=== PATIENT | female | born 1990 | race Hispanic/Latino ===

== ENCOUNTER 2016-07-08 07:22 | Day surgery (SDC) | payer MEDICAID ==
--- NOTE | 2016-07-08 08:07 | Short Stay Summary ---
Short Stay Documentation Date of service: 07/08/16 Narrative H&P: Patient is a 26 year old who is 4 weeks from an . Patient now presents for elective sterilization. She has a past medical history of lymphoma and drug abuse, anxiety and eating disorder. - History H&P: obtained from office Past Medical History: cancer Past Surgical History: Other (laparoscopy) Social history: , smoking - Allergies and Medications Current Medications: Allergies citalopram hydrobromide [From Celexa] Allergy (Verified 07/07/16 16:05) Anaphylaxis fluoxetine HCl [From Prozac] Allergy (Verified 07/07/16 16:05) Anaphylaxis latex Allergy (Verified 07/07/16 16:05) Itching lavender (Lavandula angustifolia) [lavender] Allergy (Verified 07/07/16 16:05) hives, itch red dye Allergy (Verified 07/07/16 16:05) "eats skin away" Red dye / red ink...experienced this after getting a tattoo Home Medications Medication Instructions Recorded Confirmed Last Taken Type NIFEdipine XL [Procardia Xl] 30 mg PO QDAY #30 tablet 06/16/16 07/07/16 Unknown Rx ALPRAZolam [Xanax TAB] 0.5 mg PO TID PRN 07/07/16 07/07/16 Unknown History Ferrous Sulfate [Feosol] 325 mg PO QDAY 07/07/16 07/07/16 Unknown History Quetiapine Fumarate [SEROquel] 800 mg PO BID 07/07/16 07/07/16 Unknown History Ranitidine HCl [Acid Control] 150 mg PO TID 07/07/16 07/07/16 Unknown History hydrOXYZINE PAMOATE [Vistaril] 50 mg PO PRN PRN 07/07/16 07/07/16 Unknown History - Physical exam General appearance: no acute distress Integumentary: no rash HEENT: Other (edentulous) Lungs: Clear to auscultation, Normal air movement Breasts: deferred Heart: Regular rate, Normal S1, Normal S2 Gastrointestinal: normal, normoactive bowel sounds Female Genitourinary: normal Rectal Exam: deferred Extremities: No edema Short Stay Discharge Plan Follow up with: RUBINA JENKINS MD [Primary Care Provider] - 7 Days
[2016-07-08] MEDS ORDERED: ANCEF/STERILE WATER 2 GM/20 ML 2 GM/20 ML SYRINGE IV NR (09:00)
== END 2016-07-08 07:23 | disposition home or self-care (01) ==
LOC: OR 07:22
PROVIDERS: ATTEND Obstetrics & Gynecology
DX: Z30.2 Encounter for sterilization (principal); F17.210 Nicotine dependence, cigarettes, uncomplicated; Z85.9 Personal history of malignant neoplasm, unspecified; Z98.890 Other specified postprocedural states; Z53.8 Procedure and treatment not carried out for other reasons

== ENCOUNTER 2017-01-14 08:47 | Outpatient (CLI) | payer MEDICAID ==
[2017-01-14] MEDS ORDERED: LACTATED RINGERS 500 ML IV ONE (08:56)
[2017-01-14] MEDS ORDERED: LACTATED RINGERS 1,000 ML IV SCH (09:00)
[2017-01-14 09:13] VITALS: BP 111/62
[2017-01-14] MEDS ORDERED: VISTARIL PO PRN (09:30)
[2017-01-14] MEDS ORDERED: ZOFRAN IV ONE (09:30)
== END 2017-01-14 11:34 | disposition home or self-care (01) ==
LOC: TRG 08:47
PROVIDERS: ATTEND Obstetrics & Gynecology
DX: O99.332 Smoking (tobacco) complicating pregnancy, second trimester (principal); O47.02 False labor before 37 completed weeks of gestation, second trimester; Z3A.26 26 weeks gestation of pregnancy
CPT/HCPCS: 59025; 96360; J2405; J7120; Q0177

== ENCOUNTER 2017-02-23 20:40 | Outpatient (CLI) | payer MEDICAID ==
[2017-02-23] MEDS ORDERED: LACTATED RINGERS 1,000 ML IV ONE (20:47)
[2017-02-23] MEDS ORDERED: LACTATED RINGERS 1,000 ML ONE (20:49)
[2017-02-23 21:00] VITALS: BP 113/57
[2017-02-23 21:49] LABS: Bilirubin,Urine NEG (Negative); Blood,Urine NEG (Negative); Color,Urine Yellow (Yellow); Nitrite,Urine NEG (Negative); Protein,Urine <15 mg/dL mg/dL (Negative); Urobilinogen,Urine < 2.0 mg/dL (<2.0); WBC,Urine < 1.0 /HPF (0.0-6.0)
== END 2017-02-23 23:43 | disposition home or self-care (01) ==
LOC: TRG 20:40
PROVIDERS: ATTEND Obstetrics & Gynecology
DX: O62.9 Abnormality of forces of labor, unspecified (principal); O99.333 Smoking (tobacco) complicating pregnancy, third trimester; Z3A.32 32 weeks gestation of pregnancy
CPT/HCPCS: 59025; 81001; 85461; 86850; 86900; 86901; 96360; 96372; J2790; J7120

== ENCOUNTER 2017-03-26 23:24 | Outpatient (CLI) | payer MEDICAID ==
[2017-03-26 23:42] VITALS: BP 122/71
[2017-03-26] MEDS ORDERED: LACTATED RINGERS 500 ML IV ONE (23:49)
[2017-03-27] MEDS ORDERED: LACTATED RINGERS 1,000 ML ONE (00:02)
[2017-03-27 00:42] LABS: Bacteria,Urine 2+ /HPF (Negative); Bilirubin,Urine NEG (Negative); Blood,Urine NEG (Negative); Color,Urine Yellow (Yellow); Mucus,Urine 1+ /HPF; Nitrite,Urine NEG (Negative); Protein,Urine <15 mg/dL mg/dL (Negative); Urobilinogen,Urine < 2.0 mg/dL (<2.0)
== END 2017-03-27 01:18 | disposition home or self-care (01) ==
LOC: TRG 23:24
PROVIDERS: ATTEND Obstetrics & Gynecology
DX: O99.333 Smoking (tobacco) complicating pregnancy, third trimester (principal); O47.03 False labor before 37 completed weeks of gestation, third trimester; Z3A.36 36 weeks gestation of pregnancy
CPT/HCPCS: 59025; 81001; 96360; J7120

== ENCOUNTER 2017-04-06 10:02 | Outpatient (CLI) | payer MEDICAID ==
[2017-04-06 11:23] VITALS: BP 120/69
== END 2017-04-06 11:33 | disposition home or self-care (01) ==
LOC: TRG 10:02
PROVIDERS: ATTEND Obstetrics & Gynecology
DX: O99.333 Smoking (tobacco) complicating pregnancy, third trimester (principal); F17.200 Nicotine dependence, unspecified, uncomplicated; O47.1 False labor at or after 37 completed weeks of gestation; Z3A.38 38 weeks gestation of pregnancy
CPT/HCPCS: 59025

== ENCOUNTER 2017-04-07 23:48 | Outpatient (CLI) | payer MEDICAID ==
[2017-04-08 00:06] VITALS: BP 116/76
[2017-04-08] MEDS: VISTARIL PO ONE (00:49)
== END 2017-04-08 00:50 | disposition home or self-care (01) ==
LOC: TRG 23:48
PROVIDERS: ATTEND Obstetrics & Gynecology
DX: O36.8130 Decreased fetal movements, third trimester, not applicable or unspecified (principal); O62.9 Abnormality of forces of labor, unspecified; O26.893 Other specified pregnancy related conditions, third trimester; O99.333 Smoking (tobacco) complicating pregnancy, third trimester; F17.200 Nicotine dependence, unspecified, uncomplicated; Z3A.39 39 weeks gestation of pregnancy
CPT/HCPCS: Q0177

== ENCOUNTER 2017-04-11 21:48 | Outpatient (CLI) | payer MEDICAID | END 2017-04-11 22:46 | disposition home or self-care (01) | LOC: TRG 21:48 | PROVIDERS: ATTEND Obstetrics & Gynecology | DX: O47.1 False labor at or after 37 completed weeks of gestation (principal); O99.333 Smoking (tobacco) complicating pregnancy, third trimester; F17.200 Nicotine dependence, unspecified, uncomplicated; Z3A.39 39 weeks gestation of pregnancy ==

== ENCOUNTER 2017-04-28 06:14 | Day surgery (SDC) | payer MEDICAID ==
[2017-04-28] MEDS ORDERED: ZOFRAN IV PRN (07:27)
--- NOTE | 2017-04-28 07:27 | Anesthesia Consultation ---
Anesthesia Consult and Med Hx - Airway Anesthetic Teeth Evaluation: Poor ROM Head & Neck: Adequate Mental/Hyoid Distance: Adequate Mallampati Class: Class II Intubation Access Assessment: Good - Pulmonary Exam CTA: Yes - Cardiac Exam Cardiac Exam: RRR - Pre-Operative Health Status ASA Pre-Surgery Classification: ASA2 Proposed Anesthetic Plan: General - Pulmonary Hx Smoking: Yes Hx Asthma: No COPD: No Hx Pneumonia: No Hx Sleep Apnea: No - Cardiovascular System Hx Hypertension: No Hx Cardia Arrhythmia: No - Central Nervous System Hx Seizures: No Hx Back Pain: Yes (HERNIATED DISC LOWER BACK, NUMBNESS/TINGLING TO FEET) Hx Psychiatric Problems: Yes (RAPID MOOD SWINGS, PTSD, PANIC ATTACKS) - Gastrointestinal Hx Gastroesophageal Reflux Disease: Yes (moderate) - Endocrine Hx Renal Disease: No Hx End Stage Renal Disease: No Hx Non-Insulin Dependent Diabetes: Yes (BSL 73) Hx Thyroid Disease: No Hx Hypothyroidism: No Hx Hyperthyroidism: No - Hematic Hx Anemia: Yes Hx Sickle Cell Disease: No - Other Systems Hx Alcohol Use: No Hx Substance Use: No Hx Cancer: Yes (LYMPHOMA REMOVED RIGHT NECK 2013 IN REMISSION)
--- NOTE | 2017-04-28 07:27 | Anesthesia Day of Surgery ---
Anesthesia Day of Surgery - Day of Surgery Patient Examined: Yes Patient H&P Reviewed: Yes Patient is NPO: Yes
[2017-04-28] MEDS ORDERED: VERSED ONE (07:51)
[2017-04-28] MEDS ORDERED: DIPRIVAN 10 MG/ML IV ONE (07:52)
[2017-04-28] MEDS ORDERED: SUBLIMAZE ONE (07:52)
[2017-04-28] MEDS ORDERED: NACL 0.9% 1000 ML 1,000 ML IV SCH (08:00)
[2017-04-28] MEDS ORDERED: NACL BACTERIOSTATIC INFILTRATI ONE (08:18)
[2017-04-28] MEDS ORDERED: MARCAINE 0.25% INFILTRATI ONE ×2 (08:25→09:37)
[2017-04-28 08:37] LABS: Hematocrit 35.2 % (30.3-42.9); Hemoglobin 11.8 gm/dl (10.1-14.3)
--- NOTE | 2017-04-28 08:46 | Short Stay Summary ---
Short Stay Documentation Date of service: 04/28/17 Narrative H&P: Patient is a 27 year old who presents for elective sterilization. She is 2 weeks post from and [facility]. - History Principal diagnosis: Undesired fertility H&P: obtained from office Past Medical History: cancer (lymphoma), other (bipolar disorder) Past Surgical History: appendectomy, Other (laparoscopy) Social history: , other (history of drug abuse) - Allergies and Medications Current Medications: Allergies citalopram hydrobromide [From Celexa] Allergy (Verified 07/07/16 16:05) Anaphylaxis fluoxetine HCl [From Prozac] Allergy (Verified 07/07/16 16:05) Anaphylaxis latex Allergy (Verified 04/23/17 10:58) HIVES, ITCHING lavender (Lavandula angustifolia) [lavender] Allergy (Verified 07/07/16 16:05) hives, itch Home Medications Medication Instructions Recorded Confirmed Last Taken Type HYDROcodone/APAP 7.5-325 [Sheridan 1 each PO Q4H PRN 04/23/17 04/28/17 04/27/17 History 7.5/325] Ibuprofen 800 mg PO Q6H PRN 04/23/17 04/28/17 04/27/17 History Sulfamethoxazole/Trimethoprim 1 each PO BID 04/23/17 04/28/17 04/27/17 History [Bactrim DS TAB] ALPRAZolam [Xanax] 1 mg PO BID 04/28/17 04/28/17 04/27/17 History Sertraline [Zoloft] 100 mg PO BID 04/28/17 04/28/17 04/27/17 History Active Medications Cefazolin Sodium (Ancef/Sterile Water 2 Gm/20 Ml) 2 gm IV PREOP NR Hydromorphone HCl (Dilaudid) 0.5 mg IV Q10MIN PRN PRN Reason: Pain , Severe (7-10) Stop: 04/28/17 13:00 Sodium Chloride (Nacl 0.9% 1000 Ml) 1,000 mls @ 42 mls/hr IV DIRECT JANINA Last Admin: 04/28/17 08:20 Dose: 42 mls/hr Ondansetron HCl (Zofran) 4 mg IV ONCE PRN PRN Reason: Nausea And Vomiting Stop: 04/28/17 12:00 - Physical exam General appearance: no acute distress HEENT: Other (missing all top teeth) Lungs: Clear to auscultation, Normal air movement Breasts: deferred Heart: Regular rate, Normal S1, Normal S2 Gastrointestinal: normal, normoactive bowel sounds Female Genitourinary: normal Rectal Exam: deferred Extremities: No edema, normal temperature - Brief post op/procedure progress note Date of procedure: 04/28/17 Pre-op diagnosis: Undesired fertility Post-op diagnosis: same Procedure: Bilateral laparoscopic salpingectomy Anesthesia: GETA Findings: Normal uterus tubes and ovaries Surgeon: KENJI OLIVEIRA Estimated blood loss: 50-100ml Pathology: list (right and left fallopian tubes) Specimen disposition: to lab Condition: stable - Hospital course Hospital course: unremarkable - Disposition Condition at discharge: Good Disposition: DC-[id number] TO HOME OR SELFCARE Short Stay Discharge Plan Activity: advance as tolerated Weight Bearing Status: Weight Bear as Tolerated Diet: regular Follow up with: KENJI OLIVEIRA MD [Primary Care Provider] - 14 Days Prescriptions: HYDROcodone/APAP 7.5-325 [Sheridan 7.5-325 mg TAB] 1 each PO Q4H PRN #20 tablet PRN Reason: Pain
[2017-04-28] MEDS ORDERED: ANCEF/STERILE WATER 2 GM/20 ML IV NR (09:00)
[2017-04-28] MEDS ORDERED: NACL 0.9% IR ONE (09:37)
--- NOTE | 2017-04-28 10:11 | Operative Report ---
Operative Report Operative Report: Preoperative diagnosis: Undesired fertility Postoperative diagnosis: Same Procedure: Bilateral laparoscopic salpingectomy Surgeon: Jannette Murray Anesthesia: General EBL: Minimal IV fluids: [900] Urine output:[100] Findings:[Normal uterus tubes and ovaries] Specimens: Portion of right and left fallopian tube Complications: None The patient was properly identified as herself. She was then taken to the OR with IV running and in place. She was given general anesthesia without difficulty. She was placed in a dorsal lithotomy position. She was then prepped and draped in normal sterile fashion. Attention was turned to the patient's vagina. Her bladder was drained of clear urine with a red rubber catheter. The speculum was then placed the patient's vagina. The cervix was visualized and grasped with tenaculum. The acorn cannula was then inserted. The surgeon's gloves were changed and attention turned to the patient's abdomen. A small incision was made in the patient's umbilicus incision a 5 mm trocar was placed. The laparoscope confirmed intra-abdominal placement. The abdomen was insufflated with CO2 gas to approximately 25 mmHg. Both fallopian tubes were identified. With direct visualization a second trocar was placed through an incision in the left lower quadrant. Both tubes were found and followed out to the fimbriated ends. Each tube was cauterized at the portion nearest the cornua, then cauterized across the broad ligament until the tube was completely detached. There was excellent hemostasis at the end of this portion of the procedure. Each tube was handed off for pathology. At this point the abdomen was deflated. All instruments were then removed from the abdomen. The incisions were then closed with 4-0 Monocryl. The incisions were also injected with quarter percent Marcaine. The patient tolerated the procedure well she was then awakened and taken recovery in stable condition. Sponge needle and instrument counts were correct 2.
[2017-04-28] MEDS: DILAUDID IV PRN ×2 (10:19→10:44)
[2017-04-28] MEDS ORDERED: ZOFRAN ONE (10:26)
[2017-04-28] MEDS ORDERED: XYLOCAINE MPF 2% ONE (10:26)
[2017-04-28] MEDS ORDERED: ZEMURON IV ONE (10:26)
[2017-04-28] MEDS ORDERED: DECADRON ONE (10:26)
[2017-04-28] MEDS ORDERED: NEOSTIGMINE ONE (10:59)
[2017-04-28] MEDS ORDERED: ROBINUL ONE (11:00)
[2017-04-28] MEDS ORDERED: NORCO 7.5/325 PO PRN (11:27)
[2017-04-28 13:06] VITALS: BP 112/63
--- NOTE | 2017-04-28 23:43 | Post Anesthesia Evaluation ---
- Post Anesthesia Evaluation Patient Participated: Yes Airway Patent: Yes Stable Respiratory Function: Yes Nausea/Vomiting: No Temp > 96.8F: Yes Pain Manageable: Yes Adequeate Hydration: Yes Anesthesia Complications: No
== END 2017-04-28 12:35 | disposition home or self-care (01) ==
LOC: OR 06:14
PROVIDERS: ATTEND Obstetrics & Gynecology
DX: Z30.2 Encounter for sterilization (principal); O24.13 Pre-existing type 2 diabetes mellitus, in the puerperium; E11.9 Type 2 diabetes mellitus without complications; O99.215 Obesity complicating the puerperium; O99.345 Other mental disorders complicating the puerperium; F31.9 Bipolar disorder, unspecified; F41.0 Panic disorder [episodic paroxysmal anxiety]; F43.10 Post-traumatic stress disorder, unspecified; O99.335 Smoking (tobacco) complicating the puerperium; F17.200 Nicotine dependence, unspecified, uncomplicated; Z98.890 Other specified postprocedural states; Z91.040 Latex allergy status; Z88.8 Allergy status to other drugs, medicaments and biological substances; Z91.018 Allergy to other foods; Z79.899 Other long term (current) drug therapy; Z85.72 Personal history of non-Hodgkin lymphomas
CPT/HCPCS: 36415; 58661; 81025; 84702; 85014; 85018; 88302; J0690; J1100; J1170; J2250; J2405; J2704; J2710; J3010; J7030